=== PATIENT | female | born 1965 | race Caucasian/White ===

== ENCOUNTER 2018-06-13 09:03 | Inpatient (IN) | payer OTHER ==
[~2018-06-13] VITALS: Ht 167.6 cm; Wt 99.4 kg
[2018-06-13] MEDS ORDERED: SODIUM CHLORIDE 0.9% 1,000 ML IV ONE (09:16)
[2018-06-13] MEDS ORDERED: PLEASE ENTER HEIGHT AND WEIGHT MC SCH (09:30)
[2018-06-13] MEDS ORDERED: SODIUM CHLORIDE FLUSH 10ML SYR IVF ONE (09:30)
[2018-06-13] MEDS ORDERED: MORPHINE SULFATE 4 MG/ML, 1ML ONE ×2 (09:39→10:40)
[2018-06-13 09:40] LABS: BASOPHILS # (AUTO) 0.05 x10^3/uL (0-0.1); BASOPHILS % (AUTO) 0 % (0-1); EOSINOPHILS # (AUTO) 0.02 x10^3/uL (0-0.4); EOSINOPHILS % (AUTO) 0 % (1-7); LYMPHOCYTES % (AUTO) 12 % (22-44); MD NO; MEAN CORPUSCULAR HEMOGLOBIN 30.1 pg (27.0-34.8); MEAN CORPUSCULAR HGB CONC 33.1 g/dL (32.4-35.8); MEAN CORPUSCULAR VOLUME 90.9 fL (80-100); MONOCYTES # (AUTO) 0.49 x10^3/uL (0.2-0.8); MONOCYTES % (AUTO) 4 % (2-9); NEUTROPHILS # (AUTO) 10.23 x10^3/uL (1.8-6.8); NEUTROPHILS % (AUTO) 84 % (42-75); PLATELET COUNT 357 x10^3/uL (130-400); RED BLOOD COUNT 4.51 x10^6/uL (3.82-5.3); RED CELL DISTRIBUTION WIDTH 13.7 % (9.6-15.2)
[2018-06-13] MEDS: MORPHINE SULFATE 4 MG/ML, 1ML IVPush PRN ×2 (09:42→10:43)
[2018-06-13 09:51] LABS: ALBUMIN 3.2 g/dL (3.4-5.0); ANION GAP 10 mmol/L (5-15); CALCIUM 8.6 mg/dL (8.5-10.1); CHLORIDE 100 mmol/L (98-107)
[2018-06-13 09:56] LABS: ALANINE AMINOTRANSFERASE 29 U/L (12-78); ALKALINE PHOSPHATASE 140 U/L (45-117); BILIRUBIN,TOTAL 0.4 mg/dL (0.2-1.0); CREATININE 0.72 mg/dL (0.55-1.02); TOTAL PROTEIN 7.6 g/dL (6.4-8.2)
[2018-06-13] MEDS ORDERED: OMNIPAQUE 350 MG/ML, 100ML BOTTLE ONE (10:27)
[2018-06-13 10:29] LABS: INTERNATIONAL NORMALIZED RATIO 7.03 (0.93-1.1); PROTHROMBIN TIME 70.4 Seconds (9.6-11.5)
[2018-06-13] MEDS ORDERED: LABETALOL 5MG/ML, 20ML IVPush PRN (12:30)
[2018-06-13] MEDS ORDERED: ACETAMINOPHEN 325 MG TABLET PO PRN (12:30)
[2018-06-13] MEDS ORDERED: ONDANSETRON 2MG/ML, 2ML IVPush PRN (12:30)
[2018-06-13] MEDS ORDERED: ONDANSETRON ODT 4 MG PO PRN (12:30)
[2018-06-13] MEDS ORDERED: PHYTONADIONE 10 MG/ML, 1ML IM ONE (12:30)
[2018-06-13] MEDS ORDERED: HYDROmorphone 2 MG/ML, 1ML ONE ×4 (13:07→23:59)
[2018-06-13] MEDS: HYDROmorphone 1 MG/ML, 1ML IV PRN ×3 (13:11→21:31)
[2018-06-13] MEDS: D5%-0.45NACL+KCL 20MEQ 1,000 ML IV SCH (13:13)
[2018-06-13 13:22] VITALS: BP 141/97
[2018-06-13 14:20] VITALS: BP 126/85
[2018-06-13 15:42] LABS: MICROSCOPIC INDICATED
[2018-06-13 16:00] LABS: CULTURE INDICATED? NO
[2018-06-13 19:52] VITALS: BP 132/74
[2018-06-13] MEDS ORDERED: FAMOTIDINE 20 MG/2 ML IVPush SCH (21:00)
[2018-06-14] VITALS (12 sets, daily range): BP systolic 110–126; BP diastolic 70–88
[2018-06-14] MEDS: D5%-0.45NACL+KCL 20MEQ 1,000 ML IV SCH ×2 (00:01→11:45)
[2018-06-14] MEDS: HYDROmorphone 1 MG/ML, 1ML IV PRN ×8 (00:02→22:45)
[2018-06-14] MEDS ORDERED: HYDROmorphone 2 MG/ML, 1ML ONE ×7 (03:37→22:22)
[2018-06-14 05:49] LABS: MEAN CORPUSCULAR HGB CONC 33.6 g/dL (32.4-35.8); MEAN CORPUSCULAR VOLUME 92.4 fL (80-100); MEAN PLATELET VOLUME 9.3 fL (7.4-10.4); PLATELET COUNT 371 x10^3/uL (130-400)
[2018-06-14 05:52] LABS: ALBUMIN 2.4 g/dL (3.4-5.0); ANION GAP 11 mmol/L (5-15); CALCIUM 8.1 mg/dL (8.5-10.1); CHLORIDE 102 mmol/L (98-107)
[2018-06-14 05:56] LABS: ALANINE AMINOTRANSFERASE 91 U/L (12-78); ALKALINE PHOSPHATASE 184 U/L (45-117); BILIRUBIN,TOTAL 0.8 mg/dL (0.2-1.0); CREATININE 0.87 mg/dL (0.55-1.02); TOTAL PROTEIN 6.4 g/dL (6.4-8.2)
[2018-06-14 06:29] LABS: INTERNATIONAL NORMALIZED RATIO 6.86 (0.93-1.1); PROTHROMBIN TIME 68.7 Seconds (9.6-11.5)
[2018-06-14 06:48] LABS: BASOPHILS # (AUTO) 0.02 x10^3/uL (0-0.1); BASOPHILS % (AUTO) 0 % (0-1); EOSINOPHILS % (AUTO) 0 % (1-7); LYMPHOCYTES # (AUTO) 0.88 x10^3/uL (1-3.4); LYMPHOCYTES % (AUTO) 5 % (22-44); MD SCAN; MONOCYTES # (AUTO) 0.85 x10^3/uL (0.2-0.8); MONOCYTES % (AUTO) 4 % (2-9); NEUTROPHILS # (AUTO) 17.38 x10^3/uL (1.8-6.8); NEUTROPHILS % (AUTO) 91 % (42-75)
[2018-06-14] MEDS ORDERED: PHYTONADIONE 10 MG/ML, 1ML SQ ONE (07:30)
[2018-06-14] MEDS ORDERED: CEFTRIAXONE 1,000 MG in SODIUM CHLORIDE 0.9% 50 ML IV SCH (07:30)
[2018-06-14] MEDS ORDERED: METRONIDAZOLE PMX 500MG/100ML 100 ML IV SCH (07:30)
[2018-06-14] MEDS ORDERED: PANTOPRAZOLE 80 MG in SODIUM CHLORIDE 0.9% 50 ML IV ONE (07:30)
[2018-06-14] MEDS ORDERED: PANTOPRAZOLE 80 MG in SODIUM CHLORIDE 0.9% 100 ML IV SCH (07:30)
[2018-06-14 14:48] LABS: PROTHROMBIN TIME 51.5 Seconds (9.6-11.5)
[2018-06-14 14:49] LABS: INTERNATIONAL NORMALIZED RATIO 5.11 (0.93-1.1)
[2018-06-14] MEDS: MEROPENEM 1 GM in SODIUM CHLORIDE 0.9% 100 ML IV SCH ×2 (15:12→22:55)
[2018-06-14 23:41] LABS: INTERNATIONAL NORMALIZED RATIO 2.22 (0.93-1.1); PROTHROMBIN TIME 22.7 Seconds (9.6-11.5)
[2018-06-15] VITALS (12 sets, daily range): BP systolic 105–134; BP diastolic 55–84
[2018-06-15] MEDS ORDERED: HYDROmorphone 2 MG/ML, 1ML ONE ×7 (00:48→20:58)
[2018-06-15] MEDS: HYDROmorphone 1 MG/ML, 1ML IV PRN ×7 (00:52→21:02)
[2018-06-15 04:50] LABS: INTERNATIONAL NORMALIZED RATIO 1.49 (0.93-1.1); PROTHROMBIN TIME 15.4 Seconds (9.6-11.5)
[2018-06-15 04:52] LABS: BASOPHILS % (AUTO) 0 % (0-1); EOSINOPHILS # (AUTO) 0.02 x10^3/uL (0-0.4); EOSINOPHILS % (AUTO) 0 % (1-7); LYMPHOCYTES % (AUTO) 6 % (22-44); MD NO; MEAN CORPUSCULAR HEMOGLOBIN 30.7 pg (27.0-34.8); MEAN CORPUSCULAR HGB CONC 33.3 g/dL (32.4-35.8); MONOCYTES # (AUTO) 0.87 x10^3/uL (0.2-0.8); MONOCYTES % (AUTO) 7 % (2-9); NEUTROPHILS # (AUTO) 11.69 x10^3/uL (1.8-6.8); NEUTROPHILS % (AUTO) 87 % (42-75); PLATELET COUNT 305 x10^3/uL (130-400); RED BLOOD COUNT 3.12 x10^6/uL (3.82-5.3); RED CELL DISTRIBUTION WIDTH 14.1 % (9.6-15.2)
[2018-06-15 04:55] LABS: CALCIUM 8.1 mg/dL (8.5-10.1); CHLORIDE 101 mmol/L (98-107)
[2018-06-15 05:01] LABS: ALANINE AMINOTRANSFERASE 51 U/L (12-78); ALBUMIN 2.4 g/dL (3.4-5.0); ALKALINE PHOSPHATASE 147 U/L (45-117); ANION GAP 6 mmol/L (5-15); BILIRUBIN,TOTAL 0.9 mg/dL (0.2-1.0); CREATININE 0.66 mg/dL (0.55-1.02); TOTAL PROTEIN 6.3 g/dL (6.4-8.2)
[2018-06-15] MEDS: MEROPENEM 1 GM in SODIUM CHLORIDE 0.9% 100 ML IV SCH ×3 (06:20→22:56)
[2018-06-15] MEDS: D5%-0.45NACL+KCL 20MEQ 1,000 ML IV SCH ×2 (10:21→22:56)
[2018-06-15] MEDS ORDERED: LIDOCAINE-MPF 2%, 2ML ONE ×2 (10:52→13:02)
[2018-06-15] MEDS ORDERED: FENTANYL PF 100 MCG/2ML ONE (11:10)
[2018-06-15] MEDS ORDERED: MIDAZOLAM 1 MG/ML, 5ML ONE (11:10)
[2018-06-15] MEDS ORDERED: OMNIPAQUE 350 MG/ML, 100ML BOTTLE ONE (12:46)
[2018-06-15] MEDS ORDERED: VISIPAQUE 320 MG/ML, 150ML BOTTLE ONE (13:00)
[2018-06-15] MEDS ORDERED: VISIPAQUE 320MG/ML, 50ML BOTTLE ONE (13:00)
[2018-06-16 00:06] VITALS: BP 118/80
[2018-06-16] MEDS ORDERED: HYDROmorphone 2 MG/ML, 1ML ONE ×3 (02:39→19:56)
[2018-06-16] MEDS: HYDROmorphone 1 MG/ML, 1ML IV PRN ×3 (02:46→20:00)
[2018-06-16 04:27] VITALS: BP 116/83
[2018-06-16 05:22] LABS: BASOPHILS % (AUTO) 0 % (0-1); EOSINOPHILS # (AUTO) 0.04 x10^3/uL (0-0.4); EOSINOPHILS % (AUTO) 0 % (1-7); LYMPHOCYTES % (AUTO) 5 % (22-44); MD NO; MEAN CORPUSCULAR HGB CONC 32.5 g/dL (32.4-35.8); MEAN CORPUSCULAR VOLUME 92.5 fL (80-100); MEAN PLATELET VOLUME 8.4 fL (7.4-10.4); MONOCYTES # (AUTO) 0.96 x10^3/uL (0.2-0.8); MONOCYTES % (AUTO) 9 % (2-9); NEUTROPHILS # (AUTO) 9.71 x10^3/uL (1.8-6.8); NEUTROPHILS % (AUTO) 86 % (42-75); PLATELET COUNT 336 x10^3/uL (130-400); RED BLOOD COUNT 3.15 x10^6/uL (3.82-5.3); RED CELL DISTRIBUTION WIDTH 13.9 % (9.6-15.2)
[2018-06-16 05:37] LABS: CHLORIDE 102 mmol/L (98-107); INTERNATIONAL NORMALIZED RATIO 1.27 (0.93-1.1); PROTHROMBIN TIME 13.1 Seconds (9.6-11.5)
[2018-06-16] MEDS: D5%-0.45NACL+KCL 20MEQ 1,000 ML IV SCH ×2 (05:37→17:55)
[2018-06-16 05:43] LABS: ALANINE AMINOTRANSFERASE 36 U/L (12-78); ALKALINE PHOSPHATASE 136 U/L (45-117); ANION GAP 6 mmol/L (5-15); BILIRUBIN,TOTAL 0.8 mg/dL (0.2-1.0); CALCIUM 8.2 mg/dL (8.5-10.1); CREATININE 0.53 mg/dL (0.55-1.02); TOTAL PROTEIN 6.3 g/dL (6.4-8.2)
[2018-06-16 07:47] VITALS: BP 118/84
[2018-06-16] MEDS: MEROPENEM 1 GM in SODIUM CHLORIDE 0.9% 100 ML IV SCH ×2 (08:40→17:55)
[2018-06-16] MEDS: morphine SULFATE 10 MG/ML, 1ML IVPush PRN ×2 (08:48→15:19)
[2018-06-16 11:38] VITALS: BP 139/80
[2018-06-16 13:26] VITALS: BP 121/80
[2018-06-16 20:00] VITALS: BP 137/86
[2018-06-17 00:57] VITALS: BP 137/82
[2018-06-17] MEDS: MEROPENEM 1 GM in SODIUM CHLORIDE 0.9% 100 ML IV SCH ×2 (01:21→09:52)
[2018-06-17] MEDS ORDERED: HYDROmorphone 2 MG/ML, 1ML ONE ×3 (03:42→11:57)
[2018-06-17] MEDS: HYDROmorphone 1 MG/ML, 1ML IV PRN ×3 (03:46→12:01)
[2018-06-17 05:36] LABS: BASOPHILS # (AUTO) 0.01 x10^3/uL (0-0.1); BASOPHILS % (AUTO) 0 % (0-1); EOSINOPHILS # (AUTO) 0.09 x10^3/uL (0-0.4); EOSINOPHILS % (AUTO) 1 % (1-7); LYMPHOCYTES % (AUTO) 9 % (22-44); MD NO; MEAN CORPUSCULAR VOLUME 90.8 fL (80-100); MEAN PLATELET VOLUME 7.9 fL (7.4-10.4); MONOCYTES # (AUTO) 1.07 x10^3/uL (0.2-0.8); MONOCYTES % (AUTO) 12 % (2-9); NEUTROPHILS % (AUTO) 77 % (42-75); PLATELET COUNT 356 x10^3/uL (130-400); RED BLOOD COUNT 3.08 x10^6/uL (3.82-5.3); RED CELL DISTRIBUTION WIDTH 13.6 % (9.6-15.2)
[2018-06-17 05:45] LABS: CHLORIDE 103 mmol/L (98-107)
[2018-06-17 06:01] LABS: ALANINE AMINOTRANSFERASE 32 U/L (12-78); ALBUMIN 1.9 g/dL (3.4-5.0); ALKALINE PHOSPHATASE 123 U/L (45-117); ANION GAP 6 mmol/L (5-15); BILIRUBIN,TOTAL 0.5 mg/dL (0.2-1.0); CREATININE 0.34 mg/dL (0.55-1.02); TOTAL PROTEIN 5.6 g/dL (6.4-8.2)
[2018-06-17] MEDS: D5%-0.45NACL+KCL 20MEQ 1,000 ML IV SCH (06:40)
[2018-06-17 06:58] VITALS: BP 117/77
[2018-06-17 07:14] VITALS: BP 132/72
[2018-06-17 12:31] VITALS: BP 137/79
[2018-06-17] MEDS ORDERED: DULO30CA2 PO (16:59)
[2018-06-17] MEDS ORDERED: PRAV20TA2 PO (16:59)
[2018-06-17] MEDS ORDERED: WARF-36 PO (16:59)
[2018-06-17] MEDS ORDERED: LOSA1TAB19 PO (16:59)
[2018-06-17] MEDS ORDERED: PRAM0.12 PO (16:59)
[2018-06-17] MEDS: HYDROcodone/APAP 5/325 TABLET PO PRN (17:11)
[2018-06-17 20:00] VITALS: BP 131/83
[2018-06-17] MEDS: TEMAZEPAM 15 MG CAPSULE PO PRN (20:31)
[2018-06-18] MEDS: TEMAZEPAM 15 MG CAPSULE PO PRN (01:25)
[2018-06-18 02:00] VITALS: BP 125/84
[2018-06-18] MEDS: HYDROcodone/APAP 5/325 TABLET PO PRN ×2 (03:45→10:20)
[2018-06-18 04:47] LABS: BASOPHILS # (AUTO) 0.04 x10^3/uL (0-0.1); BASOPHILS % (AUTO) 1 % (0-1); EOSINOPHILS # (AUTO) 0.12 x10^3/uL (0-0.4); EOSINOPHILS % (AUTO) 2 % (1-7); LYMPHOCYTES # (AUTO) 1.23 x10^3/uL (1-3.4); LYMPHOCYTES % (AUTO) 17 % (22-44); MD NO; MEAN CORPUSCULAR HEMOGLOBIN 30.4 pg (27.0-34.8); MEAN CORPUSCULAR HGB CONC 33.2 g/dL (32.4-35.8); MEAN CORPUSCULAR VOLUME 91.4 fL (80-100); MEAN PLATELET VOLUME 7.3 fL (7.4-10.4); MONOCYTES # (AUTO) 0.99 x10^3/uL (0.2-0.8); MONOCYTES % (AUTO) 14 % (2-9); NEUTROPHILS # (AUTO) 4.78 x10^3/uL (1.8-6.8); NEUTROPHILS % (AUTO) 67 % (42-75); PLATELET COUNT 356 x10^3/uL (130-400); RED CELL DISTRIBUTION WIDTH 13.9 % (9.6-15.2)
[2018-06-18 04:55] LABS: CALCIUM 7.9 mg/dL (8.5-10.1); CHLORIDE 103 mmol/L (98-107)
[2018-06-18 05:01] LABS: ALANINE AMINOTRANSFERASE 31 U/L (12-78); ALBUMIN 1.9 g/dL (3.4-5.0); ALKALINE PHOSPHATASE 121 U/L (45-117); ANION GAP 6 mmol/L (5-15); BILIRUBIN,TOTAL 0.5 mg/dL (0.2-1.0); CREATININE 0.42 mg/dL (0.55-1.02); TOTAL PROTEIN 5.7 g/dL (6.4-8.2)
[2018-06-18 07:29] VITALS: BP 132/84
[2018-06-18 13:23] VITALS: BP 136/85
== END 2018-06-18 17:53 | disposition home or self-care (01) | DRG 329 ==
LOC: ED 10:29 → EDIP 11:01 → 3NE 12:24 → 4WST 06-14 15:06
PROVIDERS: ADMIT Hospitalist; ATTEND Hospitalist
PROC: 0DU947Z Supplement Duodenum with Autologous Tissue Substitute, Percutaneous Endoscopic Approach (ICD-10-PCS; principal; 2018-06-13)
PROC: 04V33DZ Restriction of Hepatic Artery with Intraluminal Device, Percutaneous Approach (ICD-10-PCS; 2018-06-13)
PROC: 30233L1 Transfusion of Nonautologous Fresh Plasma into Peripheral Vein, Percutaneous Approach (ICD-10-PCS; 2018-06-14)
PROC: 30233K1 Transfusion of Nonautologous Frozen Plasma into Peripheral Vein, Percutaneous Approach (ICD-10-PCS; 2018-06-14)
PROC: 0F923ZZ Drainage of Left Lobe Liver, Percutaneous Approach (ICD-10-PCS; 2018-06-15)
DX: K25.5 Chronic or unspecified gastric ulcer with perforation (principal); E43 Unspecified severe protein-calorie malnutrition; S36.112A Contusion of liver, initial encounter; D68.9 Coagulation defect, unspecified; Q44.6 Cystic disease of liver; R65.10 Systemic inflammatory response syndrome (SIRS) of non-infectious origin without acute organ dysfunction; D64.9 Anemia, unspecified; E66.9 Obesity, unspecified; E78.00 Pure hypercholesterolemia, unspecified; E78.5 Hyperlipidemia, unspecified; E87.6 Hypokalemia; F17.200 Nicotine dependence, unspecified, uncomplicated; I10 Essential (primary) hypertension; J44.9 Chronic obstructive pulmonary disease, unspecified; K76.89 Other specified diseases of liver; Z68.35 Body mass index [BMI] 35.0-35.9, adult; Z79.01 Long term (current) use of anticoagulants; Z85.3 Personal history of malignant neoplasm of breast; Z86.718 Personal history of other venous thrombosis and embolism; Z88.0 Allergy status to penicillin; Z90.11 Acquired absence of right breast and nipple; Z98.84 Bariatric surgery status
CPT/HCPCS: 36415; 75989; 99285; S0028; 36430; 37244; 49405; 74150; 74160; 74177; 75726; 76705; 76937; 80053; 81001; 83605; 83690; 85014; 85018; 85025; 85610; 86850; 86900; 87040; 96361; 96374; 96376; 99156; 99157; C1894; G0378; J1170; J2185; J2250; J3010; J3430; J3490; Q9967; C1751; C1760; C1769; J2270; J3480; J7030; P9017